=== PATIENT | female | born 1930 | race Caucasian/White ===

== ENCOUNTER 2020-08-19 10:30 | Inpatient (IN) | payer OTHER ==
[~2020-08-19] VITALS: Ht 149.9 cm; Wt 62.6 kg
[2020-08-19] MEDS ORDERED: SYNTHROID75 MCG PO (13:33)
[2020-08-19] MEDS ORDERED: SINGUL PO (13:33)
[2020-08-19] MEDS ORDERED: GABAPEN PO (13:33)
[2020-08-19] MEDS ORDERED: PROTON PO (13:34)
[2020-08-19] MEDS ORDERED: XANAX PO (13:36)
[2020-08-19] MEDS ORDERED: TIMOLOL (13:39)
[2020-08-19] MEDS ORDERED: PROTONIX PO (13:46)
[2020-08-26] MEDS ORDERED: GABAPENTIN800 M1 (08:50)
[2020-08-26] MEDS ORDERED: PANTOPRAZOLE SO40 MG (08:50)
[2020-08-26] MEDS ORDERED: PROPRANOLOL HCL20 MG (08:50)
[2020-08-26] MEDS ORDERED: ATORVASTATIN CA20 MG (08:50)
[2020-08-26] MEDS ORDERED: FAMOTIDINE40 MG (08:50)
[2020-08-26] MEDS ORDERED: ALPRAZOLAM0.25 MG (08:50)
[2020-08-26] MEDS ORDERED: TIMOLOL MALEATE5 M4 (08:59)
[2020-08-26] MEDS ORDERED: MONTELUKAST SOD10 MG (08:59)
== END 2020-09-02 17:50 | disposition home or self-care (01) | DRG 330 ==
LOC: O/R 08-26 05:55 → SURH 08-26 07:00 → EDBD 08-26 10:30 → SURH 08-26 13:33
PROVIDERS: ADMIT Colon & Rectal Surgery; ATTEND Colon & Rectal Surgery
PROC: 07BB4ZZ Excision of Mesenteric Lymphatic, Percutaneous Endoscopic Approach (ICD-10-PCS; 2020-08-26)
PROC: 0WQF4ZZ Repair Abdominal Wall, Percutaneous Endoscopic Approach (ICD-10-PCS; 2020-08-26)
PROC: 0DTF4ZZ Resection of Right Large Intestine, Percutaneous Endoscopic Approach (ICD-10-PCS; principal; 2020-08-26 07:00)
DX: D12.2 Benign neoplasm of ascending colon (principal); K43.6 Other and unspecified ventral hernia with obstruction, without gangrene; K91.89 Other postprocedural complications and disorders of digestive system; K56.7 Ileus, unspecified; L03.90 Cellulitis, unspecified; R59.0 Localized enlarged lymph nodes; E03.8 Other specified hypothyroidism; K21.9 Gastro-esophageal reflux disease without esophagitis; F41.9 Anxiety disorder, unspecified; E11.9 Type 2 diabetes mellitus without complications